=== PATIENT | male | born 1980 | race Caucasian/White ===

== ENCOUNTER 2016-09-02 14:47 | Emergency (ER) | payer OTHER ==
[~2016-09-02 14:47] MED LIST: Calcium Chloride 1 GM/10 ML Abboject SYRINGE ONE; EPINEPHrine 1 MG/ML AMP ONE
== END 2016-09-02 16:55 | disposition expired ==
LOC: EDBD 14:47 → NAV ERS 14:47
DX: I46.9 Cardiac arrest, cause unspecified (principal); F17.200 Nicotine dependence, unspecified, uncomplicated; V23.4XXA Motorcycle driver injured in collision with car, pick-up truck or van in traffic accident, initial encounter
CPT/HCPCS: 94760; G0390; J0171